=== PATIENT | male | born 1995 | race Caucasian/White ===

== ENCOUNTER 2016-04-02 04:58 | Emergency (ER) | payer OTHER ==
[2016-04-02] MEDS ORDERED: Ondansetron INJ* 2 MG/ML VIAL IV ONE ×2 (05:13→12:15)
[2016-04-02] MEDS ORDERED: NS 0.9% 1000 ML* 1,000 ML IV ONE ×2 (05:13→07:38)
--- NOTE | 2016-04-02 05:20 | ED ---
Oswaldo Gomes Rebecca, scribed for Brant Matute MD on 04/02/16 at 0513 . Abdominal Pain/Male - HPI Summary HPI Summary: Pt is a 20 y/o M who presents to ED c/o abd pain. Pain began suddenly at 2200 and has been constant since onset. Pain is diffuse without radiation, characterized as cramping and ranked 9/10. Sx aggravated and alleviated by nothing. Additionally c/o V/D. States that he has vomited "dozens of times" tonight and that he cannot keep anything down. Has been unable to take anything for sx due to vomiting. Penicillin allergy. - History of Current Complaint Stated Complaint: ABD PAIN/VOMITING Time Seen by Provider: 04/02/16 05:11 Hx Obtained From: Patient Onset/Duration: Sudden Onset, Lasting Hours - 7 hours, Still Present Timing: Constant Severity Initially: Moderate Severity Currently: Severe Pain Intensity: 9 Pain Scale Used: 0-10 Numeric Location: Diffuse Radiates: No Character: Cramping Aggravating Factor(s): Nothing Alleviating Factor(s): Nothing Associated Signs And Symptoms: Positive: Vomiting, Diarrhea - Allergies/Home Medications Allergies/Adverse Reactions: Allergies Allergy/AdvReac Type Severity Reaction Status Date / Time Coconut Oil Allergy Unknown Verified 06/05/14 11:24 Reaction Details Gluten Meal Allergy Unknown Verified 06/05/14 11:24 Reaction Details Penicillins Allergy Unknown Verified 06/05/14 11:24 Reaction Details PMH/Surg Hx/FS Hx/Imm Hx Endocrine/Hematology History: Denies: Hx Diabetes, Hx Thyroid Disease Cardiovascular History: Denies: Hx Congestive Heart Failure, Hx Hypertension, Hx Pacemaker/ICD, Other Cardiovascular Problems/Disorders Respiratory History: Denies: Hx Asthma, Hx Chronic Obstructive Pulmonary Disease (COPD), Other Respiratory Problems/Disorders GI History: Denies: Hx Ulcer Musculoskeletal History: Reports: Hx Orthopedic Injury - Break of L arm - 2003, break of R arm - 2006 Sensory History: Reports: Hx Contacts or Glasses Opthamlomology History: Reports: Hx Contacts or Glasses Neurological History: Denies: Hx Seizures Psychiatric History: Reports: Hx Anxiety, Hx Depression - pt's father this year Denies: Hx Eating Disorder, Hx of Violent Episodes Against Others Infectious Disease History: Denies: Hx Clostridium Difficile, Hx Hepatitis, Hx Human Immunodeficiency Virus (HIV), Hx of Known/Suspected MRSA, Hx Shingles, Hx Tuberculosis, History Other Infectious Disease - Family History Known Family History: Positive: Other - Pancreatic CA (father) - Social History Alcohol Use: Rare Alcohol Amount: once month Substance Use Type: Reports: Marijuana Hx Tobacco Use: Yes Smoking Status (MU): Current Some Day Smoker Type: Cigarettes Amount Used/How Often: 1 a week Have You Smoked in the Last Year: No Review of Systems Constitutional: Negative Eyes: Negative ENT: Negative Cardiovascular: Negative Respiratory: Negative Positive: Abdominal Pain - diffuse, Vomiting, Diarrhea Genitourinary: Negative Musculoskeletal: Negative Skin: Negative Neurological: Negative Psychological: Normal All Other Systems Reviewed And Are Negative: Yes Physical Exam Triage Information Reviewed: Yes Vital Signs On Initial Exam: Initial Vitals Temp Pulse Resp BP Pulse Ox 97.4 F 96 16 110/94 96 04/02/16 05:08 04/02/16 05:08 04/02/16 05:08 04/02/16 05:08 04/02/16 05:08 Vital Signs Reviewed: Yes Appearance: Positive: Ill-Appearing, Pain Distress - mildly uncomfortable, Thin Skin: Positive: Warm Head/Face: Positive: Normal Head/Face Inspection Eyes: Positive: CÉSAR ENT: Positive: Hearing grossly normal Neck: Positive: Supple Respiratory/Lung Sounds: Positive: Clear to Auscultation, Breath Sounds Present Cardiovascular: Positive: Normal Abdomen Description: Positive: No Organomegaly, Soft, Other: - mild difuse abd tenderness Bowel Sounds: Positive: Present Musculoskeletal: Positive: Strength/ROM Intact Neurological: Positive: Sensory/Motor Intact, Alert, Oriented to Person Place, Time Psychiatric: Positive: Affect/Mood Appropriate Diagnostics - Vital Signs Vital Signs Temp Pulse Resp BP Pulse Ox 04/02/16 05:08 97.4 F 96 16 110/94 96 - Laboratory Pertinent Lab Values Are: WNL Result Diagrams: 04/02/16 05:32 04/02/16 05:32 Lab Statement: Any lab studies that have been ordered have been reviewed, and results considered in the medical decision making process. Re-Evaluation - Re-Evaluation First Eval Re-Evaluation Time: 07:12 - feeling better, no vomit, tolerating po Change: Improved Abdominal Pain Fem Course/Dx - Course Assessment/Plan: Pt is a 20 y/o M who presents to ED with a CC of abd pain, V/D for the last 7 hours. Pt will be d/c to home with a dx of gastroenteritis. - Diagnoses Provider Diagnoses: Gastroenteritis Discharge - Discharge Plan Condition: Stable Disposition: HOME Patient Education Materials: Gastroenteritis (ED) Referrals: [facility] [place] [place]] - 4 Days (Follow up with your primary care physician within the next 4 days. ) The documentation as recorded by the Oswaldo jeffrey Rebecca accurately reflects the service I personally performed and the decisions made by me, Brant Matute MD.
[2016-04-02 05:55] LABS: Hematocrit 46 % (42-52); Mean Corpuscular HGB Conc 35 g/dl (31-36); Mean Corpuscular Hemoglobin 31 pg (27-31); Mean Corpuscular Volume 88 fL (80-94); Mean Platelet Volume 8 um3 (7.4-10.4); Red Blood Count 5.17 10^6/ul (4.0-5.4); Red Cell Distribution Width 13 % (10.5-15); White Blood Count 10.1 10^3/ul (3.5-10.8)
[2016-04-02 06:11] LABS: Albumin 5.2 g/dL (3.2-5.2); BUN/Creatinine Ratio 12.1 (8-20); Calcium 10.1 mg/dL (8.6-10.3); EGFR African American 101.3 (>60); EGFR Non-African American 78.7 (>60); Globulin 2.9 g/dL (2-4); Magnesium 1.9 mg/dL (1.9-2.7); Total Bilirubin 0.9 mg/dL (0.2-1.0); Total Protein 8.1 g/dL (6.4-8.9)
[2016-04-02] MEDS ORDERED: Metoclopramide IV* 5 MG/ML 2 ML VIAL IV ONE (07:37)
[2016-04-02] MEDS ORDERED: Ondansetron ODT TAB* 4 MG ONE (11:39)
[2016-04-02 12:09] VITALS: BP 127/70
== END 2016-04-02 11:45 | disposition home or self-care (01) ==
LOC: ED 04:58
DX: K52.9 Noninfective gastroenteritis and colitis, unspecified (principal); R10.9 Unspecified abdominal pain; R11.2 Nausea with vomiting, unspecified; Z72.0 Tobacco use
CPT/HCPCS: 36415; 80053; 83690; 83735; 85025; 96374; 96375; 99282; A9270-GY; J2405; J2765